=== PATIENT | male | born 1995 | race American Indian/Alaskan Native ===

== ENCOUNTER 2018-08-25 16:20 | Emergency (ER) | payer MEDICAID ==
[2018-08-25 16:28] VITALS: BP 144/75; PULSE 97; RESP 16; TEMP 98.7; O2SAT 99
--- NOTE | 2018-08-25 17:44 | C.PDOC ---
History Of Present Illness 23 y/o male presents to the ED complaining of generalized itching and rash throughout body for the past 2 weeks. Patient reports he recently started 5 new medications, and is unsure which may be causing symptoms. States the rash comes and goes. Denies any fever, recent travel, facial swelling, SOB, chest pain, or wheezing. Time Seen by Provider: 08/25/18 16:35 Chief Complaint (Nursing): Abnormal Skin Integrity History Per: Patient History/Exam Limitations: no limitations Onset/Duration Of Symptoms: Intermittent Episodes Current Symptoms Are (Timing): Better Quality Of Symptoms: Itching Past Medical History Reviewed: Historical Data, Nursing Documentation, Vital Signs Vital Signs: Last Vital Signs Temp 98.7 F 08/25/18 16:25 Pulse 97 H 08/25/18 16:25 Resp 16 08/25/18 16:25 BP 144/75 08/25/18 16:25 Pulse Ox 99 08/25/18 16:25 - Medical History PMH: Asthma Family History: States: No Known Family Hx - Social History Hx Alcohol Use: No Hx Substance Use: No - Immunization History Hx Tetanus Toxoid Vaccination: No Hx Influenza Vaccination: No Hx Pneumococcal Vaccination: No Review Of Systems Except As Marked, All Systems Reviewed And Found Negative. Constitutional: Negative for: Fever, Chills Eyes: Negative for: Eyelid Inflammation, Redness ENT: Negative for: Ear Pain, Mouth Swelling, Throat Swelling Cardiovascular: Negative for: Chest Pain, Edema Respiratory: Negative for: Cough, Shortness of Breath, Wheezing Gastrointestinal: Negative for: Nausea, Vomiting, Abdominal Pain Genitourinary: Negative for: Dysuria Musculoskeletal: Negative for: Neck Pain Skin: Positive for: Rash (throughout body) Physical Exam - Physical Exam Appears: Non-toxic, No Acute Distress Skin: Warm, Dry, Rash (Scattered excoriation noted throughout extremities and trunk, no erythema; No urticaria at this time) Head: Atraumatic, Normacephalic Eye(s): bilateral: Normal Inspection, PERRL, EOMI Oral Mucosa: Moist Throat: Normal (airway is patent), No Erythema Neck: Normal ROM, Supple Chest: Symmetrical, No Tenderness Cardiovascular: Rhythm Regular, No Friction Rub, No Murmur Respiratory: Normal Breath Sounds, No Accessory Muscle Use, No Rales, No Rhonchi, No Stridor, No Wheezing Gastrointestinal/Abdominal: Soft, No Tenderness Extremity: Normal ROM, No Swelling Extremity: Bilateral: Atraumatic, Normal Color And Temperature, Normal ROM Neurological/Psych: Oriented x3, Normal Speech Gait: Steady ED Course And Treatment O2 Sat by Pulse Oximetry: 99 (RA) Pulse Ox Interpretation: Normal Medical Decision Making Medical Decision Making: Plan: --Pepcid 20 mg IVP --Prednisone 40 mg PO --Benadryl 25 mg PO On reassessment patient reports feeling better. On re-exam, the patient reports improvement of symptoms. Lungs are CTA, heart is RRR, abdomen is soft, non- tender and the patient is tolerating PO well. Follow up with the medical doctor within 1-2 days. Return if worsened. Counseled regarding the need to identify allergen triggering symptoms. Advised to follow up with PMD or return to the ED for any worsening symptoms. Disposition - Disposition Referrals: Efe Hankins MD [Medical Doctor] - Disposition: HOME/ ROUTINE Disposition Time: 17:38 Condition: STABLE Additional Instructions: Follow up with the medical doctor within 1-2 days, Return if worsened. Prescriptions: DiphenhydrAMINE [Benadryl] 25 mg PO QID #28 cap Famotidine [Pepcid] 20 mg PO BID #20 tab predniSONE [Prednisone] 20 mg PO BID #10 tab Instructions: Hives (DC) Forms: [employer]nb (Lao) - Clinical Impression Clinical Impression: Urticaria - PA / [employer] / Resident Statement MD/DO has reviewed & agrees with the documentation as recorded. - Scribe Statement The provider has reviewed the documentation as recorded by the Scribe (Lona Arevalo) All medical record entries made by the Scribe were at my direction and personally dictated by me. I have reviewed the chart and agree that the record accurately reflects my personal performance of the history, physical exam, medical decision making, and the department course for this patient. I have also personally directed, reviewed, and agree with the discharge instructions and disposition.
== END 2018-08-25 17:50 | disposition home or self-care (01) ==
LOC: C.ER 16:20
DX: L50.9 Urticaria, unspecified (principal)